=== PATIENT | female | born 1995 | race Two or more races ===

== ENCOUNTER 2016-11-21 12:10 | Observation (INO) | payer MEDICAID | END 2016-11-21 14:05 | disposition home or self-care (01) | DRG 566 | LOC: LDRP 12:10 | PROVIDERS: ADMIT Specialist; ATTEND Specialist | DX: O48.0 Post-term pregnancy (principal); Z3A.00 Weeks of gestation of pregnancy not specified | CPT/HCPCS: 59025; 76818; 81002; G0378 ==

== ENCOUNTER 2016-11-23 05:43 | Inpatient (IN) | payer MEDICAID ==
[~2016-11-23] VITALS: Ht 170.2 cm; Wt 70.3 kg
[2016-11-23] MEDS ORDERED: LACT. RINGERS/OXYTOCIN 20UNITS 1,000 ML IV SCH (06:16)
[2016-11-23] MEDS ORDERED: LACTATED RINGER'S 1,000 ML IV SCH (06:16)
[2016-11-23] MEDS ORDERED: NALBUPHINE HCL 10 MG/1ml INJECTION IV PRN (06:30)
[2016-11-23] MEDS ORDERED: LIDOCAINE 2%HCL (LOCAL ANESTH.) INJ 20ML MDV IJ ONE (06:30)
[2016-11-23] MEDS ORDERED: PHISODERM TOP SOLN 240ML BTL TOP PRN (06:30)
[2016-11-23] MEDS ORDERED: PROMETHAZINE HCL 25 MG/ML 1ML IV PRN (06:30)
[2016-11-23] MEDS ORDERED: WITCH HAZEL-GLYCERIN PAD TOP PRN (06:30)
[2016-11-23 07:52] LABS: Basophils # (auto) 0 uL; Basophils % (auto) 0.3 % (0.0-2.0); Eosinophils # (auto) 0.1 uL; Hematocrit 36.5 % (36.0-46.0); Lymphocytes # (auto) 2.2 uL; Lymphocytes % (auto) 23.5 % (10.0-50.0); Mean Corpuscular Hemoglobin 28.1 pg (28.0-32.0); Mean Corpuscular Volume 85.4 fL (80.0-100.0); Mean Platelet Volume 10.9 fL (7.4-10.4); Monocytes # (auto) 0.6 uL; Monocytes % (auto) 6.8 % (0.0-12.0); Neutrophils # (auto) 6.4 uL; Neutrophils % (auto) 68.4 % (37.0-80.0); Platelet Count (auto) 192 10^3/uL (140-450); White Blood Cell 9.4 10^3/uL (4.4-10.8)
[2016-11-23 08:00] LABS: Potassium 3.6 mmol/L (3.5-5.1)
[2016-11-23 08:02] LABS: BUN/Creatinine Ratio 18.9
[2016-11-23 08:04] LABS: Bilirubin, Total 0.7 mg/dL (0.2-1.0); Total Protein 7.6 g/dL (6.4-8.2)
[2016-11-23 08:08] LABS: INR 0.93 (0.9-1.15); Partial Thromboplastin Time 23.8 sec (22.64-33.71); Prothrombin Time 9.6 sec (9.37-12.3)
[2016-11-23 08:23] LABS: Urine Bilirubin Negative (Negative); Urine Blood Negative /uL (Negative); Urine Color Yellow (Yellow); Urine Glucose Normal (Normal); Urine Ketone Negative (Negative); Urine Mucus FEW (None Seen); Urine Nitrite Negative (Negative); Urine RBC <1 /hpf (0 - 4); Urine Squamous Epithelial Cell FEW /hpf (<5); Urine Urobilinogen Normal (Negative)
[2016-11-23] MEDS ORDERED: LIDOCAINE HCL 2 %PF INJ 10ML AMP IJ ONE (10:45)
[2016-11-23] MEDS ORDERED: NALOXONE HCL 0.4 MG/ML VIAL IV ONE ×2 (10:45→12:00)
[2016-11-23] MEDS ORDERED: fentaNYL CITRATE 100 MCG/2 ML VL IV ONE ×2 (10:45→12:00)
[2016-11-23] MEDS ORDERED: fentaNYL W ROPIVACAINE 150 ML EPI SCH ×2 (10:45→12:00)
[2016-11-23] MEDS ORDERED: ePHEDrine SULFATE 50 MG/ML AMP IV ONE ×2 (10:45→12:00)
[2016-11-23] MEDS ORDERED: SODIUM CHLORIDE 0.9% 500 ML IV PRN (11:49)
[2016-11-23] MEDS ORDERED: ACETAMINOPHEN 325 MG TAB PO PRN (17:30)
[2016-11-23] MEDS: IBUPROFEN 600 MG TAB PO PRN ×2 (19:54→23:26)
[2016-11-23 20:30] VITALS: BP 120/78
[2016-11-23 23:28] VITALS: BP 128/80
[2016-11-23 23:30] VITALS: BP 116/59
[2016-11-24] MEDS: IBUPROFEN 600 MG TAB PO PRN ×4 (03:03→23:43)
[2016-11-24] MEDS ORDERED: TETANUS-DIPTH-ACEL PERTUSSIS 0.5ML SYRG IM ONE (03:45)
[2016-11-24] MEDS ORDERED: INFLUENZA QUAD 2016-2017 0.5 ML SYRG IM ONE (03:45)
[2016-11-24 04:20] VITALS: BP 120/60
[2016-11-24 07:21] VITALS: BP 116/69
[2016-11-24] MEDS ORDERED: PREN-96 PO (07:24)
[2016-11-24] MEDS: DOCUSATE CALCIUM 240 MG CAP PO SCH (10:10)
[2016-11-24 12:30] VITALS: BP 119/73
[2016-11-24 16:11] VITALS: BP 118/68
[2016-11-24 18:55] VITALS: BP 111/56
[2016-11-24 23:36] VITALS: BP 126/72
[2016-11-25 03:40] VITALS: BP 130/80
[2016-11-25] MEDS: IBUPROFEN 600 MG TAB PO PRN (08:06)
[2016-11-25] MEDS: DOCUSATE CALCIUM 240 MG CAP PO SCH (08:06)
[2016-11-25] MEDS ORDERED: TETANUS-DIPTH-ACEL PERTUSSIS 0.5ML SYRG IM ONE (08:15)
[2016-11-25] MEDS ORDERED: INFLUENZA QUAD 2016-2017 0.5 ML SYRG IM ONE (08:15)
[2016-11-25 08:17] VITALS: BP 111/65
== END 2016-11-25 10:45 | disposition home or self-care (01) | DRG 560 ==
LOC: LDRP 05:43 → OBSVTOIN 06:15 → LDRP 07:56
PROVIDERS: ADMIT Specialist; ATTEND Specialist
PROC: 10E0XZZ Delivery of Products of Conception, External Approach (ICD-10-PCS; principal; 2016-11-23)
PROC: 0W8NXZZ Division of Female Perineum, External Approach (ICD-10-PCS; 2016-11-23)
PROC: 3E0S3CZ (ICD-10-PCS; 2016-11-23)
PROC: 00HU33Z Insertion of Infusion Device into Spinal Canal, Percutaneous Approach (ICD-10-PCS; 2016-11-23)
PROC: 0UQJXZZ Repair Clitoris, External Approach (ICD-10-PCS; 2016-11-23)
DX: O71.89 Other specified obstetric trauma (principal); Z23 Encounter for immunization; Z37.0 Single live birth; Z3A.40 40 weeks gestation of pregnancy
CPT/HCPCS: 36415; 59025; 59409; 80053; 81001; 81002; 85025; 85610; 85730; 86850; 86900; 86901; 88307; 90715; 96372; G0378; J2590; J3010

== ENCOUNTER 2018-08-13 14:25 | Inpatient (IN) | payer MEDICAID ==
[~2018-08-13] VITALS: Ht 170.2 cm; Wt 68.0 kg
[~2018-08-13 14:25] MED LIST: PREN-96 PO
[2018-08-13] MEDS ORDERED: LACTATED RINGER'S 1,000 ML IV SCH (15:51)
[2018-08-13] MEDS ORDERED: LACT. RINGERS/OXYTOCIN 20UNITS 1,000 ML IV SCH (15:51)
[2018-08-13] MEDS ORDERED: PHISODERM TOP SOLN 240ML BTL TOP PRN (16:00)
[2018-08-13] MEDS ORDERED: LIDOCAINE 2% (LOCAL ANESTH.) PF 5ml SDV ID ONE (16:00)
[2018-08-13] MEDS ORDERED: DERMOPLAST 60ML BOTTLE TOP PRN (16:00)
[2018-08-13] MEDS ORDERED: PROMETHAZINE HCL 25 MG/ML 1ML IV PRN (16:00)
[2018-08-13] MEDS ORDERED: NALBUPHINE HCL 10 MG/1ml INJECTION IV PRN (16:00)
[2018-08-13] MEDS ORDERED: WITCH HAZEL-GLYCERIN PAD TOP PRN (16:00)
[2018-08-13] MEDS ORDERED: METHYLERGONOVINE MALEATE 0.2 MG/ML AMP IM PRN (16:00)
[2018-08-13 16:49] LABS: Albumin 2.9 g/dL (3.4-5.0); BUN/Creatinine Ratio 19.4; Bilirubin, Total 0.6 mg/dL (0.2-1.0); Calcium 8.5 mg/dL (8.5-10.1); Potassium 3.9 mmol/L (3.5-5.1); Total Protein 7.5 g/dL (6.4-8.2)
[2018-08-13 16:50] LABS: Basophils # (auto) 0 uL; Basophils % (auto) 0.5 % (0.0-2.0); Eosinophils # (auto) 0.1 uL; Eosinophils % (auto) 0.9 % (0.0-7.0); Hematocrit 35.1 % (36.0-46.0); Hemoglobin 12.2 g/dL (12.2-16.2); Lymphocytes # (auto) 1.8 uL; Lymphocytes % (auto) 20.2 % (10.0-50.0); Mean Corpuscular Hemoglobin 30.6 pg (28.0-32.0); Mean Corpuscular Hgb Conc. 34.6 g/dL (32.0-36.0); Mean Corpuscular Volume 88.3 fL (80.0-100.0); Monocytes # (auto) 0.7 uL; Monocytes % (auto) 7.4 % (0.0-12.0); Neutrophils # (auto) 6.3 uL; Nucleated Red Blood Cells % 0.1 %; Platelet Count (auto) 186 10^3/uL (140-450); Red Blood Cells 3.98 10^6/uL (4.0-5.20); Red Cell Distribution Width 13.1 % (11.8-14.3); White Blood Cell 8.8 10^3/uL (4.4-10.8)
[2018-08-13 16:59] LABS: Urine Amorphous Crystal FEW /hpf (None Seen); Urine Bacteria NONE SEEN /hpf (None Seen); Urine Blood TRACE /uL (Negative); Urine Mucus FEW (None Seen); Urine Specific Gravity 1.022 (1.001-1.035); Urine WBC 3 /hpf (0 - 5)
[2018-08-13 17:04] LABS: INR 0.84 (0.9-1.15); Partial Thromboplastin Time 25.2 sec (23.78-33.04); Prothrombin Time 9.1 sec (9.27-12.13)
[2018-08-13 17:04] LABS: Alcohol, Urine < 3.0 mg/dL (0-5); Amphetamine Screen, Urine NEGATIVE (NEGATIVE); Benzodiazephine Screen, Urine NEGATIVE (NEGATIVE); Cannabinoid Screen, Urine NEGATIVE (NEGATIVE); Cocaine Screen, Urine NEGATIVE (NEGATIVE); Opiate Scree,Urine NEGATIVE (NEGATIVE); Phencyclidine Screen, Urine NEGATIVE (NEGATIVE)
[2018-08-13 17:08] LABS: Barbiturate Scree,Urine NEGATIVE (NEGATIVE)
[2018-08-14] MEDS ORDERED: TERBUTALINE SULFATE 1 MG/ML 1ML VIAL SC SCH (03:15)
[2018-08-14] MEDS ORDERED: fentaNYL CITRATE 100 MCG/2 ML VL IV ONE (04:30)
[2018-08-14] MEDS ORDERED: NALOXONE HCL 0.4 MG/ML VIAL IV ONE (04:30)
[2018-08-14] MEDS ORDERED: LIDOCAINE HCL 2 %PF INJ 10ML AMP IJ ONE (04:30)
[2018-08-14] MEDS ORDERED: fentaNYL W ROPIVACAINE 150 ML EPI SCH (04:30)
[2018-08-14] MEDS ORDERED: ePHEDrine SULFATE 50 MG/ML AMP IV ONE (04:30)
[2018-08-14] MEDS ORDERED: ACETAMINOPHEN 325 MG TAB PO PRN ×2 (06:30→07:30)
[2018-08-14] MEDS ORDERED: IBUPROFEN 600 MG TAB PO PRN (06:30)
[2018-08-14 11:30] VITALS: BP 114/73
[2018-08-14] MEDS: IBUPROFEN 600 MG TAB PO PRN ×3 (12:22→22:41)
[2018-08-14 15:05] VITALS: BP 111/69
[2018-08-14 19:00] VITALS: BP 109/63
[2018-08-14 23:00] VITALS: BP 110/68
[2018-08-15 03:00] VITALS: BP 108/57
[2018-08-15] MEDS: IBUPROFEN 600 MG TAB PO PRN ×2 (04:05→07:36)
[2018-08-15 07:00] VITALS: BP 101/65
[2018-08-15 07:08] LABS: RPR Non Reactive (Non Reactive)
[2018-08-15 11:03] VITALS: BP 110/70
== END 2018-08-16 11:30 | disposition home or self-care (01) | DRG 560 ==
LOC: EDBD → EDSEX → EDBD → EDSEX → LDRP 14:25 → OBSVTOIN 15:05 → LDRP 17:42
PROVIDERS: ADMIT Obstetrics & Gynecology; ATTEND Obstetrics & Gynecology
PROC: 10E0XZZ Delivery of Products of Conception, External Approach (ICD-10-PCS; principal; 2018-08-14)
PROC: 0UQMXZZ Repair Vulva, External Approach (ICD-10-PCS; 2018-08-14)
PROC: 3E0R3BZ Introduction of Anesthetic Agent into Spinal Canal, Percutaneous Approach (ICD-10-PCS; 2018-08-14)
PROC: 00HU33Z Insertion of Infusion Device into Spinal Canal, Percutaneous Approach (ICD-10-PCS; 2018-08-14)
DX: O69.81X0 Labor and delivery complicated by cord around neck, without compression, not applicable or unspecified (principal); O70.0 First degree perineal laceration during delivery; Z37.0 Single live birth; Z3A.39 39 weeks gestation of pregnancy
CPT/HCPCS: 36415; 59025; 80053; 80307; 81001; 81002; 85025; 85610; 85730; 86592; 86703; 86850; 86900; 86901; 87340; 96361; 96366; G0378; J2001; J2590; J3010

== ENCOUNTER 2018-08-14 06:02 | Observation (INO) | payer MEDICAID ==
[~2018-08-14] VITALS: Ht 50.8 cm; Wt 3.2 kg
[2018-08-14] MEDS ORDERED: ERYTHROMY OPTH OINT 5mg/gm 1gm OP ONE (06:45)
[2018-08-14] MEDS ORDERED: HEPATITIS B VACCINE PED (PF) 10 MCG/0.5 ML IM ONE (06:45)
[2018-08-14] MEDS ORDERED: PHYTONADIONE 1MG/0.5ML SYRINGE NEONATAL IM ONE (06:45)
== END 2018-08-15 11:30 | disposition home or self-care (01) | DRG 560 ==
LOC: EDSEX → EDBD → LDRP 06:02 → EDBD 06:02 → EDSEX 06:02 → NUR 06:36 → LDRP 10:14
PROVIDERS: ADMIT Obstetrics & Gynecology; ATTEND Pediatrics
DX: O69.81X0 Labor and delivery complicated by cord around neck, without compression, not applicable or unspecified (principal); Z37.0 Single live birth
CPT/HCPCS: G0378